=== PATIENT | male | born 1935 | race Caucasian/White ===

== ENCOUNTER 2016-11-29 | Outpatient (CLI) | payer MEDICARE, OTHER | END 2016-11-29 12:10 | disposition short-term general hospital (02) | DX: R53.1 Weakness (principal) | CPT/HCPCS: A0425; A0429; A0888 ==

== ENCOUNTER 2017-05-26 10:00 | Outpatient (CLI) | payer MEDICARE, OTHER ==
[2017-05-26 13:50] LABS: BUN - BLOOD UREA NITROGEN 52 mg/dL (6-20); CALCIUM 9.4 mg/dL (8.5-10.3); CARBON DIOXIDE - CO2 26 mmol/L (21-32); CHLORIDE 105 mmol/L (101-111); CHOL/HDL RATIO 3.5 (<5.0); CHOLESTEROL 122 mg/dL; CREATININE 2.1 mg/dL (0.6-1.2); GFR - MDRD 30 (>89); GLUCOSE 140 mg/dL (70-100); HDL CHOLESTEROL 35 mg/dL; LDL/HDL RATIO 1.4 (<3.6); POTASSIUM 4.8 mmol/L (3.5-5.0); SODIUM 140 mmol/L (135-145); TRIGLYCERIDES 186 mg/dL; VLDL CHOLESTEROL 37 mg/dL
== END 2017-05-26 10:01 | disposition home or self-care (01) ==
LOC: LAB.N 10:00
PROVIDERS: ATTEND Internal Medicine Cardiovascular Disease
DX: I48.92 Unspecified atrial flutter (principal); G47.33 Obstructive sleep apnea (adult) (pediatric); I27.2 Other secondary pulmonary hypertension; N18.3 Chronic kidney disease, stage 3 (moderate); E78.00 Pure hypercholesterolemia, unspecified; I12.9 Hypertensive chronic kidney disease with stage 1 through stage 4 chronic kidney disease, or unspecified chronic kidney disease
CPT/HCPCS: 36415; 80048; 80061

== ENCOUNTER 2017-07-05 10:31 | Outpatient (CLI) | payer MEDICARE, OTHER ==
[2017-07-05 13:13] LABS: HCT - HEMATOCRIT 37.5 % (42.0-52.0); HGB - HEMOGLOBIN 12.5 g/dL (14.0-18.0); MEAN CORPUSCULAR HEMOGLOBIN 30.9 pg (27.0-31.0); MEAN CORPUSCULAR HGB CONC 33.4 g/dL (32.0-36.0); MEAN CORPUSCULAR VOLUME 92.6 fL (80.0-94.0); RED BLOOD COUNT 4.05 10^6/uL (4.70-6.10); RED CELL DISTRIBUTION WIDTH 12.4 % (12.0-15.0); WHITE BLOOD COUNT 6.4 x10^3/uL (4.8-10.8)
[2017-07-05 13:44] LABS: CALCIUM 8.7 mg/dL (8.5-10.3); CREATININE 1.2 mg/dL (0.6-1.2); POTASSIUM 3.8 mmol/L (3.5-5.0)
== END 2017-07-05 10:32 | disposition home or self-care (01) ==
LOC: LAB.N 10:31
PROVIDERS: ATTEND Student in an Organized Health Care Education/Training Program
DX: N05.9 Unspecified nephritic syndrome with unspecified morphologic changes (principal); R80.9 Proteinuria, unspecified
CPT/HCPCS: 36415; 80048; 82570; 84156

== ENCOUNTER 2017-08-12 10:33 | Outpatient (CLI) | payer MEDICARE, OTHER ==
[2017-08-12 13:11] LABS: HGB - HEMOGLOBIN 11.8 g/dL (14.0-18.0)
[2017-08-12 13:42] LABS: CALCIUM 8.8 mg/dL (8.5-10.3); CREATININE 1.4 mg/dL (0.6-1.2); PHOSPHORUS 3.3 mg/dL (2.5-4.6); POTASSIUM 3.8 mmol/L (3.5-5.0)
[2017-08-12 14:42] LABS: FERRITIN 83.9 ng/mL (23.9-336.2)
[2017-08-12 19:25] LABS: BILIRUBIN,URINE NEGATIVE (NEGATIVE)
[2017-08-12 19:32] LABS: WBC,URINE 0-3 /HPF (0-3)
== END 2017-08-12 10:34 | disposition home or self-care (01) ==
LOC: LAB.N 10:33
PROVIDERS: ATTEND Student in an Organized Health Care Education/Training Program
DX: N05.9 Unspecified nephritic syndrome with unspecified morphologic changes (principal); D50.0 Iron deficiency anemia secondary to blood loss (chronic); N30.00 Acute cystitis without hematuria; E83.30 Disorder of phosphorus metabolism, unspecified
CPT/HCPCS: 36415; 80048; 81001; 82728; 83540; 83970; 84100; 84466; 85014; 85018; 87086

== ENCOUNTER 2017-11-20 07:26 | Outpatient (CLI) | payer MEDICARE, OTHER | END 2017-11-20 07:27 | disposition critical access hospital (66) | LOC: EMS 07:26 | PROVIDERS: ATTEND Surgery | DX: R46.4 Slowness and poor responsiveness (principal) | CPT/HCPCS: A0425; A0427 ==

== ENCOUNTER 2017-11-20 07:54 | Emergency (ER) | payer MEDICARE, OTHER ==
[2017-11-20] MEDS ORDERED: IPRATROPIUM/ALBUTEROL 3 ML NEB INH STA (08:12)
--- NOTE | 2017-11-20 08:14 | ED Physician Documentation ---
PD HPI ALTERED MENTAL STATUS - Stated complaint Stated Complaint: ALOC - Chief complaint Chief Complaint: General - History obtained from History obtained from: Patient - History of Present Illness Timing - onset: Today Timing - details: Abrupt onset Quality / character: Less responsive ( says she was woken up by her agitated and fumbling with his CPAP oxygen/tubing. She called EMS and the Medics also noted him to be sleepy, but then agitated on exam, with sats at 82% RA ( says he uses oxygen [place] 2.5 L just at night due to sleep apnea. Does not need oxygen during day.), Agitated Associated symptoms: Cough (mild), General weakness. No: Fever, Headache, Stiff neck Basline status: Alert and oriented X 3, Walker Similar symptoms before: Has not had sx before Recently seen: Not recently seen Review of Systems Constitutional: denies: Fever, Chills, Myalgias Ears: reports: Ear pain Nose: denies: Congestion, Foreign Body Throat: reports: Dental pain / toothache, Sore throat Cardiac: denies: Chest pain / pressure, Palpitations Respiratory: reports: Dyspnea, Cough. denies: Wheezing Musculoskeletal: denies: Neck pain, Back pain Neurologic: reports: Generalized weakness, Near syncope. denies: Focal weakness , Numbness Psychiatric: denies: Depressed, Suicidal, Homicidal, Hallucinations, Insomnia Endocrine: reports: Polydypsia, Weight loss PD PAST MEDICAL HISTORY - Past Medical History Cardiovascular: None Respiratory: None Neuro: CVA Endocrine/Autoimmune: None - Present Medications Home Medications: Ambulatory Orders Medication Instructions Recorded Confirmed Albuterol Sulf [Ventolin Hfa 1 - 2 puffs INH Q4HR PRN #1 inhaler 11/20/17 Inhaler] Atenolol 1 tab PO DAILY 11/20/17 11/20/17 Atorvastatin [Lipitor] 2 tab PO DAILY 11/20/17 11/20/17 Cetirizine [ZyrTEC] 1 tab PO DAILY 11/20/17 11/20/17 Cholecalciferol (Vitamin D3) 1 cap PO DAILY 11/20/17 11/20/17 [Vitamin D3] Dexamethasone [Decadron] 4 mg PO DAILY #5 tablet 11/20/17 Doxazosin [Cardura] 1 tab PO DAILY 11/20/17 11/20/17 Doxycycline Monohydrate 100 mg PO BID #14 tablet 11/20/17 Finasteride 1 tab PO DAILY 11/20/17 11/20/17 Flaxseed Oil 1 cap PO DAILY 11/20/17 11/20/17 Furosemide 1 tab PO DAILY 11/20/17 11/20/17 Gluc/Cheikh-MSM#1/Vit C/Javier/Bor 1 tab PO BID 11/20/17 11/20/17 [Nvrokgv-Wdahk-IFA Complex Cplt] Levothyroxine [Synthroid] 1 tab PO DAILY 11/20/17 11/20/17 Lisinopril 1 tab PO DAILY 11/20/17 11/20/17 Meclizine [Antivert] 2 tab PO DAILY PRN 11/20/17 11/20/17 Multivit-Min/FA/Lycopen/Lutein 1 tab PO DAILY 11/20/17 11/20/17 [Centrum Silver Men Tablet] Rivaroxaban [Xarelto] 1 tab PO DAILY 11/20/17 11/20/17 Spironolactone 0.5 tab PO DAILY 11/20/17 11/20/17 - Allergies Allergies/Adverse Reactions: Allergies Allergy/AdvReac Type Severity Reaction Status Date / Time No Known Drug Allergies Allergy Verified 11/20/17 08:11 PD ED PE NORMAL - Vitals Vital signs reviewed: Yes - General General: Alert and oriented X 3, No acute distress, Well developed/nourished - HEENT HEENT: Ears normal, Pharynx benign - Neck Neck: Supple, no meningeal sign, No adenopathy - Cardiac Cardiac: RRR, No murmur - Respiratory Respiratory: No respiratory distress. No: Clear bilaterally (some congested bronchial sounds. Then with some faint cellophane type sound in lungs) Results - Vitals Vitals: Vital Signs - 24 hr 11/20/17 11/20/17 11/20/17 07:56 08:35 12:24 Temperature 36.4 C L 37.9 C H Heart Rate 117 H 88 96 Respiratory 20 18 20 Rate Blood Pressure 145/108 H 157/80 H O2 Saturation 98 85 L 11/20/17 11/20/17 11/20/17 12:30 13:29 14:13 Temperature 36 C L 36.1 C L Heart Rate 116 H 77 77 Respiratory 22 18 Rate Blood Pressure 143/106 H 156/126 H O2 Saturation 94 94 Oxygen O2 Source Nasal cannula Oxygen Flow Rate 2 - Labs Labs: Laboratory Tests 11/20/17 11/20/17 11/20/17 08:51 08:51 08:51 WBC 8.3 RBC 4.11 L Hgb 12.4 L Hct 37.5 L MCV 91.3 MCH 30.3 MCHC 33.1 RDW 14.3 Plt Count 166 MPV 9.0 Neut # 5.8 Lymph # 1.1 L [place] # 0.9 Eos # 0.3 Baso # 0.1 Absolute Nucleated RBC 0.00 Nucleated RBC % 0.0 Bld Gas Analysis Time Sample Site ABG pH ABG pCO2 ABG pO2 ABG HCO3 ABG Total CO2 ABG O2 Saturation ABG Base Excess Larry Test O2 Delivery Device O2 Liters/Min Sodium 142 Potassium 4.1 Chloride 99 L Carbon Dioxide 27 Anion Gap 16.0 H BUN 21 H Creatinine 1.2 Estimated GFR (MDRD) 58 L Glucose 128 H Lactic Acid Calcium 9.5 Magnesium 2.0 Total Bilirubin 1.2 H AST 24 ALT 22 Alkaline Phosphatase 88 Troponin I 0.04 B-Natriuretic Peptide Total Protein 7.6 Albumin 4.0 Globulin 3.6 Albumin/Globulin Ratio 1.1 Lipase 20 L Urine Color Urine Clarity Urine pH Ur Specific [place] Urine Protein Urine Glucose (UA) Urine Ketones Urine Occult Blood Urine Nitrite Urine Bilirubin Urine Urobilinogen Ur Leukocyte Esterase Ur Microscopic Review Urine Culture Comments 11/20/17 11/20/17 11/20/17 08:51 08:51 10:34 WBC RBC Hgb Hct MCV MCH MCHC RDW Plt Count MPV Neut # Lymph # [place] # Eos # Baso # Absolute Nucleated RBC Nucleated RBC % Bld Gas Analysis Time Sample Site ABG pH ABG pCO2 ABG pO2 ABG HCO3 ABG Total CO2 ABG O2 Saturation ABG Base Excess Larry Test O2 Delivery Device O2 Liters/Min Sodium Potassium Chloride Carbon Dioxide Anion Gap BUN Creatinine Estimated GFR (MDRD) Glucose Lactic Acid 0.9 Calcium Magnesium Total Bilirubin AST ALT Alkaline Phosphatase Troponin I B-Natriuretic Peptide 378 H Total Protein Albumin Globulin Albumin/Globulin Ratio Lipase Urine Color YELLOW Urine Clarity CLEAR Urine pH 6.0 Ur Specific [place] 1.020 Urine Protein NEGATIVE Urine Glucose (UA) NEGATIVE Urine Ketones NEGATIVE Urine Occult Blood TRACE-INTA Urine Nitrite NEGATIVE Urine Bilirubin NEGATIVE Urine Urobilinogen 0.2 (NORMAL) Ur Leukocyte Esterase NEGATIVE Ur Microscopic Review NOT INDICATED Urine Culture Comments NOT INDICATED 11/20/17 12:35 WBC RBC Hgb Hct MCV MCH MCHC RDW Plt Count MPV Neut # Lymph # [place] # Eos # Baso # Absolute Nucleated RBC Nucleated RBC % Bld Gas Analysis Time 1244 Sample Site RIGHT RADIAL ABG pH 7.36 ABG pCO2 59 H ABG pO2 73 L ABG HCO3 32.8 H ABG Total CO2 34.6 H ABG O2 Saturation 94 ABG Base Excess 5.7 H Larry Test POSITIVE O2 Delivery Device NASAL CANNULA O2 Liters/Min 2.50 Sodium Potassium Chloride Carbon Dioxide Anion Gap BUN Creatinine Estimated GFR (MDRD) Glucose Lactic Acid Calcium Magnesium Total Bilirubin AST ALT Alkaline Phosphatase Troponin I B-Natriuretic Peptide Total Protein Albumin Globulin Albumin/Globulin Ratio Lipase Urine Color Urine Clarity Urine pH Ur Specific [place] Urine Protein Urine Glucose (UA) Urine Ketones Urine Occult Blood Urine Nitrite Urine Bilirubin Urine Urobilinogen Ur Leukocyte Esterase Ur Microscopic Review Urine Culture Comments PD MEDICAL DECISION MAKING - ED course Complexity details: re-evaluated patient (sats are adequate in ED with RA sats in low 90s after neb treatment.), considered differential, d/w patient, d/w family (, who says the patient has returned to close to baseline alertness. He seems slightly more confused and less talkative than normal. Consider infectious cause. ) Departure - Departure Disposition: 01 Home, Self Care Clinical Impression: Hypoxia, sleep related Dyspnea Qualifiers: Dyspnea type: shortness of breath Qualified Code(s): R06.02 - Shortness of breath Upper respiratory infection Qualifiers: URI type: unspecified URI Qualified Code(s): J06.9 - Acute upper respiratory infection, unspecified Altered mental status Qualifiers: Altered mental status type: disorientation Qualified Code(s): R41.0 - Disorientation, unspecified Condition: Stable Record reviewed to determine appropriate education?: Yes Instructions: ED Dyspnea Shortness of Breath Follow-Up: Bernabe Vicente MD [Primary Care Provider] - Prescriptions: Albuterol Sulf [Ventolin Hfa Inhaler] 1 - 2 puffs INH Q4HR PRN #1 inhaler PRN Reason: Shortness Of Air/Wheezing Dexamethasone [Decadron] 4 mg PO DAILY #5 tablet Doxycycline Monohydrate 100 mg PO BID #14 tablet Comments: I think the episode of altered mental status related to a low oxygen level and this seems to be mainly improved. He does have a little bit of wheezing going on and this might be a respiratory infection. I would use an albuterol inhaler 2 puffs 4 times a day for the next 7-10 days. Decadron daily for 5 more days for inflammation of the airways. Given antibiotic for possible infection as he could be at more risk for bacterial infection. Continue his oxygen at night. Other medications as usual. Recheck back with us or with his primary care if not improved well over the next several days. Discharge Date/Time: 11/20/17 14:35
[2017-11-20 09:02] LABS: BASOPHILS # (AUTO) 0.1 10^3/uL (0.0-0.1); BASOPHILS % (AUTO) 1.5 %; EOSINOPHILS # (AUTO) 0.3 10^3/uL (0.0-0.7); EOSINOPHILS % (AUTO) 3.8 %; HGB - HEMOGLOBIN 12.4 g/dL (14.0-18.0); LYMPHOCYTES # (AUTO) 1.1 10^3/uL (1.5-3.5); LYMPHOCYTES % (AUTO) 13.7 %; MEAN CORPUSCULAR HEMOGLOBIN 30.3 pg (27.0-31.0); MEAN CORPUSCULAR HGB CONC 33.1 g/dL (32.0-36.0); MEAN CORPUSCULAR VOLUME 91.3 fL (80.0-94.0); MONOCYTES # (AUTO) 0.9 10^3/uL (0.0-1.0); MONOCYTES % (AUTO) 11.3 %; NEUTROPHILS # (AUTO) 5.8 10^3/uL (1.5-6.6); NEUTROPHILS % (AUTO) 69.7 %; PLT - PLATELET COUNT 166 10^3/uL (130-450); RED BLOOD COUNT 4.11 10^6/uL (4.70-6.10); RED CELL DISTRIBUTION WIDTH 14.3 % (12.0-15.0); WHITE BLOOD COUNT 8.3 x10^3/uL (4.8-10.8)
[2017-11-20 09:13] LABS: ALBUMIN/GLOBULIN RATIO 1.1 (1.0-2.2); BILIRUBIN,TOTAL 1.2 mg/dL (0.2-1.0); CALCIUM 9.5 mg/dL (8.5-10.3); CREATININE 1.2 mg/dL (0.6-1.2); TOTAL PROTEIN 7.6 g/dL (6.7-8.2)
--- NOTE | 2017-11-20 09:57 | XRAY Report ---
EXAM: CHEST RADIOGRAPHY EXAM DATE: 11/20/2017 09:44 AM. CLINICAL HISTORY: Chest pain left sided. COMPARISON: None. TECHNIQUE: 2 views. FINDINGS: Lungs/Pleura: Low inspiratory volume bilaterally with asymmetric elevation right hemidiaphragm. Diffu se vascular and interstitial prominence in the lungs greatest centrally. No gross airspace pulmonary edema. No dense consolidation frontal projection exam. Posterior infrahilar increased opacity superim posed on spine is seen on the lateral view. This is indeterminate. Mediastinum: Cardiomegaly. Calcified atherosclerosis of the aorta. Hilar vascular prominence. Limited study for exclusion of adenopathy. Other: Extensive spondylotic changes and multiple wedge compression fractures in the mid to lower tho racic spine and upper lumbar spine, age indeterminate. IMPRESSION: Technically limited examination related to patient body habitus with mild motion artifact associated with long exposure time on lateral view. 1. Focal increased density posterior infrahilar superimposed on lower thoracic spine at approximately the T9/T10 level. No definite corresponding dense consolidation or mass is seen on frontal projectio n exam, however, overall assessment is suboptimal. Increased density associated with spondylotic [place] ge/spurring and bone density is a consideration. Dense consolidation or mass posteriorly is difficult to exclude. No prior studies currently available for comparison. Follow-up is recommended. CT could also be considered for further evaluation. 2. Cardiomegaly, calcified atherosclerosis of aorta. Hilar vascular prominence and diffuse vascular a nd interstitial prominence in the lungs. Congestive changes consideration. No gross airspace pulmonar y edema. No gross pleural effusion. 3. Exam otherwise as above. [facility] Referring Provider Line: [phone] SITE ID: [id number]
[2017-11-20 10:39] LABS: BILIRUBIN,URINE NEGATIVE (NEGATIVE); GLUCOSE, URINE (UA) NEGATIVE (NEGATIVE); KETONES,URINE (UA) NEGATIVE (NEGATIVE); LEUKOCYTE ESTERASE, URINE NEGATIVE (NEGATIVE); NITRITE,URINE NEGATIVE (NEGATIVE); OCCULT BLOOD,URINE TRACE-INTA (NEGATIVE); PROTEIN,URINE NEGATIVE (NEGATIVE); UROBILINOGEN,URINE 0.2 (NORMAL) E.U./dL (NORMAL)
[2017-11-20 10:41] LABS: CLARITY,URINE CLEAR (CLEAR)
[2017-11-20] MEDS ORDERED: DEXAMETHASONE 10 MG/ML VIAL IVP STA (12:01)
[2017-11-20 12:47] LABS: ABG BASE EXCESS 5.7 mmol/L (-2.0-3.0); ABG HCO3 32.8 mmol/L (22.0-26.0); ABG OXYGEN SATURATION 94 % (94-98); ABG PCO2 59 mmHg (34-45); ABG PH 7.36 (7.35-7.45); ABG PO2 73 mmHg (80-100); ABG TCO2 34.6 MMOL/L (21.0-29.0); ALLEN TEST POSITIVE
[2017-11-20 14:15] VITALS: BP 156/126
== END 2017-11-20 14:35 | disposition home or self-care (01) ==
LOC: EDUNIT# → ED 07:54
DX: G47.34 Idiopathic sleep related nonobstructive alveolar hypoventilation (principal); J06.9 Acute upper respiratory infection, unspecified; R06.02 Shortness of breath; R41.0 Disorientation, unspecified; G47.30 Sleep apnea, unspecified; Z86.73 Personal history of transient ischemic attack (TIA), and cerebral infarction without residual deficits
CPT/HCPCS: 36415; 36600; 51701; 71046; 80053; 81003; 82803; 83605; 83690; 83735; 83880; 84484; 85025; 93005; 94640; 96374; 99284; J7620; 81001; 87086

== ENCOUNTER 2017-12-04 16:23 | Outpatient (CLI) | payer MEDICARE, OTHER | END 2017-12-04 16:24 | disposition short-term general hospital (02) | LOC: EMS 16:23 | PROVIDERS: ATTEND Surgery | DX: R46.4 Slowness and poor responsiveness (principal); R68.83 Chills (without fever) | CPT/HCPCS: A0425; A0427; A0888 ==